=== PATIENT | male | born 1950 | race Caucasian/White ===

== ENCOUNTER 2017-07-24 07:27 | Outpatient (CLI) | payer OTHER | END 2017-07-24 15:49 | disposition home or self-care (01) | LOC: TOM 07:27 | DX: E78.2 Mixed hyperlipidemia (principal); I10 Essential (primary) hypertension; N40.1 Benign prostatic hyperplasia with lower urinary tract symptoms; N28.1 Cyst of kidney, acquired; R97.20 Elevated prostate specific antigen [PSA]; R39.15 Urgency of urination ==